=== PATIENT | female | born 1990 | race African-American/Black ===

== ENCOUNTER 2018-01-24 02:31 | Emergency (ER) | payer SELFPAY ==
[2018-01-24 02:40] VITALS: BP 139/92
[2018-01-24] MEDS ORDERED: IBUPROFEN 600 MG TABLET PO ONE (03:11)
[2018-01-24] MEDS ORDERED: PENICILLIN V POTASSIUM 500 MG TABLET PO ONE (03:11)
--- NOTE | 2018-01-24 03:17 | ER Document Report ---
ED General - General Chief Complaint: Toothache Stated Complaint: TOOTHACHE Time Seen by Provider: 01/24/18 02:57 Mode of Arrival: Ambulatory Information source: Patient Notes: Patient presents with chief complaint of dental pain. Patient reports the pain is on the left upper and lower areas of her mouth. Patient reports that she has been trying to get into see a dentist however she is new to the area is unsure where to go. Patient reports that she has had a long history of dental problems in her past. Patient denies any fever or dental injury. - Related Data Allergies/Adverse Reactions: coconut Allergy (Verified 01/24/18 02:33) Past Medical History - General Information source: Patient - Social History Smoking Status: Never Smoker Frequency of alcohol use: None Drug Abuse: None Family History: Reviewed & Not Pertinent - Medical History Medical History: Negative Surgical Hx: Negative - Immunizations Immunizations up to date: Yes Review of Systems - Review of Systems Constitutional: No symptoms reported EENT: Dental problem Cardiovascular: No symptoms reported Respiratory: No symptoms reported Gastrointestinal: No symptoms reported Genitourinary: No symptoms reported Female Genitourinary: No symptoms reported Musculoskeletal: No symptoms reported Skin: No symptoms reported Hematologic/Lymphatic: No symptoms reported Neurological/Psychological: No symptoms reported Physical Exam - Vital signs Vitals: Temp Pulse Resp BP Pulse Ox 97.9 F 64 18 139/92 H 99 01/24/18 02:36 01/24/18 02:36 01/24/18 02:36 01/24/18 02:36 01/24/18 02:36 - Notes Notes: PHYSICAL EXAMINATION: GENERAL: Well-appearing, well-nourished and in no acute distress. HEAD: Atraumatic, normocephalic. EYES: Pupils equal round and reactive to light, extraocular movements intact, conjunctiva are normal. ENT: Nares patent, oropharynx clear without exudates. Moist mucous membranes. Multiple dental caries noted throughout mouth, erythema noted around tooth #15 and 16 which are heavily decayed. No drainable abscess noted. NECK: Normal range of motion, supple without lymphadenopathy LUNGS: Breath sounds clear to auscultation bilaterally and equal. No wheezes rales or rhonchi. HEART: Regular rate and rhythm without murmurs ABDOMEN: Soft, nontender, nondistended abdomen. No guarding, no rebound. No masses appreciated. Female : deferred Musculoskeletal: Normal range of motion, no pitting or edema. No cyanosis. NEUROLOGICAL: Cranial nerves grossly intact. Normal speech, normal gait. Normal sensory, motor exams PSYCH: Normal mood, normal affect. SKIN: Warm, Dry, normal turgor, no rashes or lesions noted. Course - Re-evaluation Re-evalutation: Patient with multiple dental caries and erythema around tooth #[address] patient on Penicillin VK and [facility]. - Vital Signs Vital signs: Temp Pulse Resp BP Pulse Ox 97.9 F 64 18 139/92 H 99 01/24/18 02:36 01/24/18 02:36 01/24/18 02:36 01/24/18 02:36 01/24/18 02:36 Discharge - Discharge Clinical Impression: Toothache Condition: Stable Disposition: HOME, SELF-CARE Additional Instructions: TOOTHACHE: Your pain is due to dental decay. The tooth must be repaired in order for you to feel better. You will, therefore, be referred to a dentist. We do not have dentists on the staff at [facility]. Severe swelling or drainage around a tooth usually means a dental abscess. This also requires evaluation and treatment by the dentist, but antibiotics may be prescribed while awaiting dental treatment. You should be rechecked immediately if you develop major swelling of the face, increasing pain, a lump in the jaw or gums, headache, difficulty swallowing, or fever. PENICILLIN V K: You have been given a prescription for Penicillin VK. Your physician has determined that this is the best antibiotic for your condition. Pen VK can be taken with meals, however more of the antibiotic gets into the bloodstream if it's taken on an empty stomach. Penicillin usually has no side effects. However, allergy to penicillins is common. If you have had an allergic reaction to any drug of the penicillin family, you should never take any other penicillin. Notify your doctor at once if you develop hives, itching, swelling, faintness, or shortness of breath. FOLLOW-UP CARE: You have been referred for follow-up care to the dentists listed below. Call the dentists office for an appointment as you were instructed or within the next two days. If you experience worsening or a significant change in your symptoms, notify the physician immediately or return to the Emergency Department at any time for re-evaluation. [facility] [address] [place], [place] The following dental offices accept Medicaid: [facility] Dr. Walker Dr. [place] Dr. Vasquez Dr. Smith Geraldo Skelton, Ami, and Meli oral surgery Dr. Payan ([place]) Dr. Gallo ([place]) [facility] Drs. Sheikh and Ranjeet ([place]) Dr. Gloria ([place]) [facility] Dr. Duncan ([place]) Drs. Kline and ([place]) Medicaid Care Line Prescriptions: Penicillin V Potassium [Penicillin Vk 500 mg Tablet] 500 mg PO BID #20 tablet Referrals: [facility] [Provider Group] - Follow up as needed [facility] [Provider Group] - Follow up as needed
== END 2018-01-24 03:29 | disposition home or self-care (01) ==
LOC: ER 02:31
DX: K02.9 Dental caries, unspecified (principal); K08.89 Other specified disorders of teeth and supporting structures; Z91.018 Allergy to other foods
CPT/HCPCS: 99282

== ENCOUNTER 2018-06-15 11:34 | Emergency (ER) | payer SELFPAY ==
[2018-06-15] MEDS ORDERED: METOCLOPRAMIDE HCL 10 MG TABLET PO ONE (13:08)
--- NOTE | 2018-06-15 13:10 | ER Document Report ---
ED Medical Screen (RME) - General Chief Complaint: Vomiting/Diarrhea Stated Complaint: VOMITTING,DIAHRREA Time Seen by Provider: 06/15/18 13:05 Mode of Arrival: Ambulatory Information source: Patient Notes: 28-year-old female presents to the emergency room and some abdominal cramping. Patient states she is due for her period. She is sexually active. She denies vaginal discharge. TRAVEL OUTSIDE OF THE [place] IN LAST 30 DAYS: No - HPI Onset: Just prior to arrival Onset/Duration: Gradual Quality of pain: No pain Severity: None Pain Level: Denies Associated Symptoms: Diarrhea, Nausea. denies: Dysuria, Shortness of breath Exacerbated by: Denies Relieved by: Denies Similar symptoms previously: No Recently seen / treated by doctor: No - Related Data Smoking: Non-smoker Frequency of alcohol use: None Drug Abuse: None Allergies/Adverse Reactions: coconut Allergy (Verified 06/15/18 11:36) Past Medical History - General Information source: Patient - Social History Cigarette use (# per day): No Chew tobacco use (# tins/day): No Frequency of alcohol use: None Drug Abuse: None Lives with: Family Family history: None - Medical History Medical History: Negative Renal/ Medical History: Denies: Hx Peritoneal Dialysis Surgical Hx: Negative - Immunizations Immunizations up to date: Yes Review of Systems - Review of Systems Constitutional: denies: Chills, Fever EENT: No symptoms reported Cardiovascular: No symptoms reported Respiratory: No symptoms reported Gastrointestinal: See HPI Genitourinary: No symptoms reported Female Genitourinary: No symptoms reported Musculoskeletal: No symptoms reported Skin: No symptoms reported Hematologic/Lymphatic: No symptoms reported Neurological/Psychological: No symptoms reported Physical Exam - Vital signs Vitals: Temp Pulse Resp BP Pulse Ox 98.5 F 68 14 131/80 H 100 06/15/18 11:40 06/15/18 11:40 06/15/18 11:40 06/15/18 11:40 06/15/18 11:40 Notes: Physical exam: GENERAL: Is alert and oriented x3, no acute distress. HEAD: Atraumatic, normocephalic. EYES: Pupils equal round and reactive to light, extraocular movements intact, sclera anicteric, conjunctiva are normal. ENT: TMs normal, nares patent, oropharynx clear without exudates. Moist mucous membranes. NECK: Normal range of motion, supple without obvious mass or JVD. LUNGS: Breath sounds clear to auscultation bilaterally and equal. No wheezes rales or rhonchi. HEART: Regular rate and rhythm without murmurs, rubs or gallops. ABDOMEN: Soft, normoactive bowel sounds. No tenderness to palpation. No guarding, no rebound. No masses appreciated. EXTREMITIES: Normal range of motion, no pitting or edema. No clubbing or cyanosis. NEUROLOGICAL: Cranial nerves II through XII grossly intact. Normal speech, moving all extremities. PSYCH: Normal mood, normal affect. SKIN: Warm, Dry, normal turgor, no rashes or lesions noted. Course - Re-evaluation Re-evalutation: 06/15/18 15:31 She was given Reglan for nausea. She has been fine. Repeat exam: No abdominal pain, patient appears well. - Vital Signs Vital signs: Temp Pulse Resp BP Pulse Ox 98.9 F 73 14 119/72 100 06/15/18 15:13 06/15/18 15:13 06/15/18 11:40 06/15/18 15:13 06/15/18 15:13 - Laboratory Result Diagrams: 06/15/18 13:50 06/15/18 13:50 Laboratory results interpreted by me: 06/15/18 06/15/18 13:50 13:50 BUN 5 L Total Protein 9.9 H Urine Ascorbic Acid 40 H Doctor's Discharge - Discharge Clinical Impression: Viral syndrome Condition: Stable Disposition: HOME, SELF-CARE Instructions: Vomiting ([facility]), Diarrhea, Nonspecific ([facility]) Additional Instructions: Recommendations: Rest, drink plenty of fluids, advance diet as tolerated. Take Zofran for nausea. Return to the emergency room if you develop any abdominal pain, worsening cramping or any concerns or getting worse. Forms: Return to Work
[2018-06-15 14:08] LABS: HEMATOCRIT 37.2 % (36.0-47.0); HEMOGLOBIN 12.9 g/dL (12.0-15.5); MEAN CORPUSCULAR HEMOGLOBIN 30.5 pg (27.0-33.4); MEAN CORPUSCULAR HGB CONC 34.5 g/dL (32.0-36.0); MEAN CORPUSCULAR VOLUME 88 fl (80-97); PLATELET COUNT 331 10^3/uL (150-450); RED BLOOD COUNT 4.21 10^6/uL (3.72-5.28); RED CELL DISTRIBUTION WIDTH 13.6 % (11.5-14.0); WHITE BLOOD COUNT 7.2 10^3/uL (4.0-10.5)
[2018-06-15 14:15] LABS: APPEARANCE,URINE CLEAR; BILIRUBIN,URINE NEGATIVE (NEGATIVE); COLOR,URINE YELLOW; GLUCOSE, URINE NEGATIVE (NEGATIVE); KETONES,URINE NEGATIVE (NEGATIVE); LEUKOCYTE ESTERASE,URINE NEGATIVE (NEGATIVE); NITRITE,URINE NEGATIVE (NEGATIVE); PROTEIN,URINE NEGATIVE (NEGATIVE); URINE SPECIFIC GRAVITY 1.011; UROBILINOGEN,URINE NEGATIVE mg/dL (<2.0)
[2018-06-15 14:17] LABS: ALANINE AMINOTRANSFERASE 17 U/L (9-52); ALBUMIN 4.7 g/dL (3.5-5.0); ALKALINE PHOSPHATASE 98 U/L (38-126); ANION GAP 15 (5-19); ASPARTATE AMINO TRANSFERASE 25 U/L (14-36); BILIRUBIN,DIRECT 0.2 mg/dL (0.0-0.4); BILIRUBIN,TOTAL 0.5 mg/dL (0.2-1.3); BLOOD UREA NITROGEN 5 mg/dL (7-20); CARBON DIOXIDE 25 mmol/L (22-30); CHLORIDE 102 mmol/L (98-107); GLUCOSE 98 mg/dL (75-110); POTASSIUM 4.7 mmol/L (3.6-5.0); SODIUM 141.7 mmol/L (137-145); TOTAL PROTEIN 9.9 g/dL (6.3-8.2)
[2018-06-15 14:45] LABS: ABSOLUTE LYMPHOCYTES# (MANUAL) 1.9 10^3/uL (0.5-4.7); ABSOLUTE MONOCYTES # (MANUAL) 0.4 10^3/uL (0.1-1.4); ABSOLUTE NEUTROPHILS# (MANUAL) 4.9 10^3/uL (1.7-8.2); BASOPHILS % (MANUAL) 0 % (0-2); EOSINOPHILS % (MANUAL) 0 % (0-6); LYMPHOCYTES % (MANUAL) 26 % (13-45); MONOCYTES % (MANUAL) 6 % (3-13); PLATELET COMMENT ADEQUATE; RBC MORPHOLOGY COMMENT NORMO-CYTIC/CHROMIC; SEGMENTED NEUTROPHILS % (MAN) 68 % (42-78); TOTAL CELLS COUNTED 100
[2018-06-15 15:15] VITALS: BP 119/72
[2018-06-15] MEDS ORDERED: ONDANSETRON ODT 4 MG TAB (6 TAB/ER DISP) PO PRN (15:29)
== END 2018-06-15 15:38 | disposition home or self-care (01) ==
LOC: ER 11:34
DX: B34.9 Viral infection, unspecified (principal); R10.9 Unspecified abdominal pain; R19.7 Diarrhea, unspecified; R11.2 Nausea with vomiting, unspecified
CPT/HCPCS: 36415; 80053; 81001; 84702; 85025; 99283

== ENCOUNTER 2018-10-17 02:59 | Emergency (ER) | payer SELFPAY ==
[2018-10-17 03:06] VITALS: BP 132/96
[2018-10-17] MEDS ORDERED: DEXAMETHASONE SOD PHOS INJ 10 MG/1 ML VIAL IM ONE (03:21)
--- NOTE | 2018-10-17 03:24 | ER Document Report ---
ED ENT - General Chief Complaint: Sore Throat Stated Complaint: CHEST PAIN Time Seen by Provider: 10/17/18 03:15 Mode of Arrival: Ambulatory Information source: Patient TRAVEL OUTSIDE OF THE [place] IN LAST 30 DAYS: No - HPI Patient complains to provider of: Throat problem Notes: Patient here with complaints of cough, sore throat, nasal congestion with drainage for the last 3 days. Symptoms have been moderate, constant. Nothing seems to make them better or worse. She states that she is also had an intermittent hoarse voice over the last 3 days. She occasionally has some pain in her chest when she coughs only, she denies any chest pain at this time. No shortness of breath. No fever. No rash. She states she woke up this morning around 2 AM choking on some mucus which caused her to vomit. She does not have any nausea or vomiting currently. She denies any diarrhea. No abdominal pain. No rash. She vapes, denies drug use. She drinks alcohol occasionally. She denies any chronic medical problems. She denies any blurred or loss vision. No numbness, tingling, weakness. No other specific complaints at this time. - Related Data Allergies/Adverse Reactions: coconut Allergy (Verified 10/17/18 03:25) Past Medical History - Social History Smoking Status: Current Every Day Smoker Family History: Reviewed & Not Pertinent Renal/ Medical History: Denies: Hx Peritoneal Dialysis - Immunizations Immunizations up to date: Yes Review of Systems - Review of Systems -: Yes All other systems reviewed and negative Physical Exam - Vital signs Vitals: Temp Pulse Resp BP Pulse Ox 98.3 F 75 18 132/96 H 99 10/17/18 03:05 10/17/18 03:05 10/17/18 03:05 10/17/18 03:05 10/17/18 03:05 - Notes Notes: GENERAL: alert, cooperative, nontoxic, no distress. HEAD: normocephalic, atraumatic EYES: conjunctiva pink without discharge, no external redness or swelling. EARS: no external swelling, no external redness, no mastoid redness, swelling, tenderness. Ear canals are clear without swelling or drainage. TMs pearly laird, no redness, no bulging, normal landmarks, no perforation. NOSE: atraumatic, no external swelling. clear rhinorrhea noted. MOUTH/THROAT: mucous membranes moist and pink, posterior pharynx without erythema, swelling, exudate. No trismus or drooling. Intermittent hoarse voice. NECK: soft, supple, full range of motion, no meningismus. CHEST: no distress, lungs clear and equal throughout. No wheezing, rales, rhonchi. CARDIAC: regular rate and rhythm, no murmur, normal capillary refill, normal pulses. No peripheral edema noted. BACK: full range of motion, no CVA tenderness. EXTREMITIES: full range of motion of all extremities. No redness, no swelling. NEURO: alert and oriented A&O3, no focal deficits, full range of motion of all extremities. PYSCH: appropriate mood, affect. Patient is cooperative. SKIN: pink, warm, dry, no rash. Course - Re-evaluation Re-evalutation: 10/17/18 04:28 Patient is nontoxic-appearing with stable vitals. Patient here with complaints of cough, sore throat and loss of voice that started 3 days ago. No fever. Occasionally she has pain in her chest only with cough. No chest pain now. No difficulty breathing. Vitals are stable, she is afebrile. Her exam is benign. She has a mild hoarse voice. No sign of peritonsillar abscess, epiglottitis, pneumonia, strep throat. Strep test was negative, chest x-ray was negative. Patient likely with laryngitis and upper respiratory infection. Patient was given a dose of Decadron here in the emergency department. Patient will be discharged home with a prescription for Naprosyn, Flonase, decongestants. Follow-up if not better in the next 3-5 days, sooner for worsening symptoms, high fever, persistent vomiting, any further concerns. The patient's emergency department workup and current diagnosis were explained to the patient and or family. Follow-up instructions were provided. Medications if prescribed were discussed. Instructions for when to return to the emergency department including specific worrisome symptoms were discussed with the patient and/or family. - Vital Signs Vital signs: Temp Pulse Resp BP Pulse Ox 98.3 F 75 18 132/96 H 99 10/17/18 03:05 10/17/18 03:05 10/17/18 03:05 10/17/18 03:05 10/17/18 03:05 - Diagnostic Test Radiology reviewed: Image reviewed, Reports reviewed - Negative chest x-ray Discharge - Discharge Clinical Impression: Laryngitis, URI (upper respiratory infection) Condition: Stable Disposition: HOME, SELF-CARE Instructions: Sore Throat ([facility]), Upper Respiratory Illness ([facility]), Laryngitis ([facility]) Additional Instructions: Take meds as prescribed. Follow-up with your doctor if not better in the next 3-5 days, sooner for worsening symptoms, high fever, persistent vomiting, difficulty breathing or swelling, or for any further concerns. Prescriptions: Fluticasone Propionate [Flonase Nasal Midland 50 Mcg/Midland 16 gm] 1 spray NASL Q12 #1 inhaler Loratadine/Pseudoephedrine Sul [Claritin-D 12 Hour Tablet] 1 each PO BID PRN #14 tab.sr.12h PRN Reason: Naproxen [Naprosyn] 500 mg PO BID #20 tablet Referrals: [facility] [Provider Group] - Follow up as needed
--- NOTE | 2018-10-17 04:05 | RADIOLOGY REPORT (SQ) ---
Chest 2 view on 10/17/2018 at 3:30 AM CLINICAL INDICATION: Cough, chest pain COMPARISON: None FINDINGS: The lungs are clear. Cardiac, hilar and mediastinal contours are within normal limits. Pulmonary vascularity is within normal limits. No bony abnormality is noted. IMPRESSION: No active disease.
== END 2018-10-17 04:33 | disposition home or self-care (01) ==
LOC: ER 02:59
DX: J06.9 Acute upper respiratory infection, unspecified (principal); J04.0 Acute laryngitis; R09.81 Nasal congestion; F17.200 Nicotine dependence, unspecified, uncomplicated
CPT/HCPCS: 99283; 96372; 87070; 87880; 71046; J1100